=== PATIENT | female | born 1990 | race Caucasian/White ===

== ENCOUNTER 2023-06-13 20:09 | Inpatient (IN) | payer BC, SELFPAY ==
[2023-06-13 20:35] VITALS: BP 115/86; BMI 27.2
[2023-06-13 21:05] LABS: % Basophils 0.4 % (0-2); % Eosinophils 0.9 % (0-6); % Immature Granulocytes 0.2 % (0-0.5); % Lymphocytes 26.6 % (20.5-51.1); % Monocytes 8.4 % (1.7-9.3); % Neutrophils 63.5 % (42.2-75.2); Absolute Basophils 0.1 10^3/uL (0-0.2); Absolute Eosinophils 0.1 10^3/uL (0-0.7); Absolute Lymphocytes 3.4 10^3/uL (1.2-3.4); Absolute Monocytes 1.1 10^3/uL (0.1-0.6); Absolute Neutrophils 8.1 10^3/uL (1.4-6.5); Hematocrit 33.8 % (37.0-47.0); Hemoglobin 12.3 g/dL (12.0-16.0); Mean Corp Hgb Conc. 36.4 g/dL (33.0-37.0); Mean Corpuscular Hgb 30.1 pg (27.0-31.0); Mean Corpuscular Volume 82.8 fL (81.0-99.0); Mean Platelet Volume 10.1 fL (7.4-10.4); Nucleated Red Blood Cells % 0 %; Platelet Count 232 10^3/uL (130-400); Red Blood Cell Count 4.08 10^6/uL (4.20-5.40); Red Cell Dist. Width 12.3 % (11.5-14.5); White Blood Cell Count 12.7 10^3/uL (4.8-10.8)
[2023-06-13] MEDS: CYTOTEC 25 MICROGRAM VAG (21:06)
[2023-06-13] MEDS: LR 1000 IV (21:07)
[2023-06-14] MEDS: CYTOTEC 50 MICROGRAM PO ×2 (01:42→05:42)
[2023-06-14] MEDS: FENTANYL/BUPIVACAINE 100 EPIDURAL (08:39)
[2023-06-14] MEDS: SUBLIMAZE 100 MCG EPIDURAL (08:39)
[2023-06-14] MEDS: CYTOTEC PO (09:09)
[2023-06-14] MEDS: PITOCIN 30 UNITS/NSS 500 ML IV (10:12)
[2023-06-14] MEDS: MOTRIN 600 MG PO ×2 (13:40→20:30)
[2023-06-14] MEDS: TYLENOL 650 MG PO (23:47)
[2023-06-15] MEDS: MOTRIN 600 MG PO ×2 (03:28→11:48)
[2023-06-15 05:30] LABS: Hematocrit 30.9 % (37.0-47.0); Hemoglobin 10.9 g/dL (12.0-16.0)
[2023-06-15] MEDS: PRENATAL PLUS 1 TABLET PO (07:47)
[2023-06-15] MEDS: RHOGAM 300 MCG IM (09:48)
[2023-06-15] MEDS: TYLENOL 650 MG PO (11:48)
--- NOTE | 2023-06-15 14:12 | CM ---
CM met with parents Beena and Theodore
Confirmed address. Parents and son Michel 2 1/2 yo currently live in home
Baby is named Juliana
Mom reports she plans to breast and bottle feed . She has a breast pump
Mom reports she has all supplies for including car seat
[facility]s [facility]
[2023-06-15 14:27] LABS: Syphilis/T. pallidum Ab Reflex Negative (Negative)
== END 2023-06-15 13:10 | disposition home or self-care (01) | DRG 806 ==
LOC: LDRP 20:09
PROVIDERS: Obstetrics & Gynecology; ADMITTING PHYSICIAN Obstetrics & Gynecology; FAMILY PHYSICIAN Nurse Practitioner Adult Health
PROC: 3E0P7VZ Introduction of Hormone into Female Reproductive, Via Natural or Artificial Opening (ICD-10-PCS; 2023-06-13)
PROC: 0UQG7ZZ Repair Vagina, Via Natural or Artificial Opening (ICD-10-PCS; 2023-06-14)
PROC: 10E0XZZ Delivery of Products of Conception, External Approach (ICD-10-PCS; 2023-06-14)
PROC: 3E0234Z Introduction of Serum, Toxoid and Vaccine into Muscle, Percutaneous Approach (ICD-10-PCS; 2023-06-15)
DX: O69.0XX0 Labor and delivery complicated by prolapse of cord, not applicable or unspecified (principal); O71.4 Obstetric high vaginal laceration alone; Z37.0 Single live birth; Z3A.39 39 weeks gestation of pregnancy
CPT/HCPCS: 36415; 85014; 85018; 85025; 85461; 86780; 86850; 86900; 86901; J2790

== ENCOUNTER → 2025-02-11 11:40 | Outpatient (REF) | payer BC, SELFPAY | LOC: PAVMRI 11:40 | PROVIDERS: ATTENDING PHYSICIAN Orthopaedic Surgery; FAMILY PHYSICIAN Nurse Practitioner Adult Health | DX: S73.191A Other sprain of right hip, initial encounter (principal) | CPT/HCPCS: 73721 ==